=== PATIENT | male | born 1980 | race Caucasian/White ===

== ENCOUNTER 2016-04-19 17:52 | Emergency (ER) | payer MEDICAID ==
[~2016-04-19] VITALS: Ht 177.8 cm; Wt 133.8 kg
[~2016-04-19 17:52] MED LIST: CLINDAMYCIN HC300 MG PO; FLEXERIL10 MG PO; HYDROCODONE BIT1 T11 PO; IBU-8800 MG PO; IBU800 MG PO; LEXAPRO20 MG PO; Motrin,Rufen800 MG PO; NAPROSYN500 MG PO; SEROQUEL50 MG PO
[2016-04-19] MEDS ORDERED: LEXAPRO5 M1 PO (18:00)
[2016-04-19] MEDS ORDERED: SEROQUEL25 MG PO (18:00)
[2016-04-19] MEDS ORDERED: NAPROSYN500 MG PO (18:09)
== END 2016-04-19 19:17 | disposition home or self-care (01) ==
LOC: ED 17:52
DX: S46.911A Strain of unspecified muscle, fascia and tendon at shoulder and upper arm level, right arm, initial encounter (principal); R03.0 Elevated blood-pressure reading, without diagnosis of hypertension; F17.200 Nicotine dependence, unspecified, uncomplicated; Z88.0 Allergy status to penicillin; Z88.6 Allergy status to analgesic agent; Z88.8 Allergy status to other drugs, medicaments and biological substances; Z90.49 Acquired absence of other specified parts of digestive tract; X58.XXXA Exposure to other specified factors, initial encounter; Y93.89 Activity, other specified; Y92.9 Unspecified place or not applicable; Y99.9 Unspecified external cause status

== ENCOUNTER 2017-05-14 19:15 | Emergency (ER) | payer OTHER ==
[~2017-05-14] VITALS: Ht 177.8 cm; Wt 145.1 kg
[~2017-05-14 19:15] MED LIST changes: +LEXAPRO5 M1 PO; +SEROQUEL25 MG PO
[2017-05-14] MEDS ORDERED: ANAPROX DS550 MG PO (20:58)
[2017-05-14] MEDS ORDERED: ROBAXIN500 M1 PO (20:58)
== END 2017-05-14 21:00 | disposition home or self-care (01) ==
LOC: ED 19:15
DX: S63.691A Other sprain of left index finger, initial encounter (principal); S16.1XXA Strain of muscle, fascia and tendon at neck level, initial encounter; M25.512 Pain in left shoulder; F17.200 Nicotine dependence, unspecified, uncomplicated; Z79.899 Other long term (current) drug therapy; Z88.0 Allergy status to penicillin; Z88.5 Allergy status to narcotic agent; Z88.6 Allergy status to analgesic agent; Z90.49 Acquired absence of other specified parts of digestive tract; W11.XXXA Fall on and from ladder, initial encounter; Y93.89 Activity, other specified; Y92.89 Other specified places as the place of occurrence of the external cause; Y99.9 Unspecified external cause status